=== PATIENT | female | born 1985 | race Asian ===

== ENCOUNTER → 2017-02-14 | Outpatient (CLI) | payer BC ==
--- NOTE | ~2017-02-14 | CR127 ---
[facility] A Service of [facility] RADIOLOGY TEXT RESULTS PATIENT: BRONSON BORJA LOCATION: [facility] : [id number] UNIT #: [id number] AGE: [address]: Ifrah Alvarez MD SEX: F ORDER DR: [id number] [facility] [address] [place], [place] [address] [id number] O MR#: [id number] Acc #: [id number] NAME: BRONSON BORJA : 1985 SEX: F STUDY DATE/TIME: 02/14/2017 18:12 UNIT: [facility] ROOM: STUDY DESCRIPTION: CR Foot Complete Min 3 View Rt Attending Physician: Ifrah Alvarez M.D. Referring Physician: Ifrah Alvarez M.D. Ordering Physician: Ifrah Alvarez M.D. Primary Care Physician: Mabel Arnold M.D. MEDICAL IMAGING REPORT This report is preliminary unless electronic signature is present EXAM Right foot series, 02/14/2017. HISTORY Pain. Patient gives additional history of pain for 4 weeks with ambulation. TECHNIQUE AP, lateral, oblique radiographs of the right foot are presented. FINDINGS No fracture or malalignment. Joint spaces intact. 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 Normal variant. No soft tissue defect, subcutaneous, or radiodense foreign body. Dictated by... Radames Duran M.D. THIS IS AN ELECTRONICALLY VERIFIED REPORT Radames Duran M.D. at 02/15/2017 3:49 PM CARMEN/tee TD: 02/15/2017 11:49 JOB #: [id number] MEDICAL IMAGING REPORT Page 1 of 1 COPY
== END | disposition home or self-care (01) ==
LOC: CRAD 17:22
DX: M79.671 Pain in right foot (principal); R26.2 Difficulty in walking, not elsewhere classified
CPT/HCPCS: 73630